=== PATIENT | female | born 1960 | race Caucasian/White ===

== ENCOUNTER 2016-12-04 10:41 | Day surgery (SDC) | payer OTHER ==
[~2016-12-04] VITALS: Ht 165.1 cm; Wt 77.1 kg
[~2016-12-04 10:41] MED LIST: ASPI-973 PO; CHOL100043 PO; CHOL400T30 PO; DESO15OI TOP; IBUP800T28 PO; L.AC1CAP6 PO; LEVO100T6 PO; LOSA25TA21 PO; Lactated Ringer's 1,000 ML IV ONE; METH850P PO; METOCLOPRAMIDE PO; OXYC-474 PO; TOLT4CAP13 PO
[2016-12-04] MEDS ORDERED: Ketamine 10 mg/mL 20 mL Inj ONE (10:42)
[2016-12-04] MEDS ORDERED: Propofol 10,000 mCg/mL 20 mL Inj ONE (10:42)
[2016-12-04] MEDS ORDERED: Glycopyrrolate 0.2 MG/ML 1mL Inj ONE (10:42)
[2016-12-04 11:40] VITALS: BP 123/71; PULSE 58; RESP 14; O2SAT 99
--- NOTE | 2016-12-04 12:09 | PCM.HPANE ---
Patient Data Date of Service: Dec 04, 2016 Surgeon Admitting Provider: Attending Provider:Violeta Contreras MD Primary Care Physician:Vicki Almodovar MD Other Provider:Russell Peterson Anesthesia Reason for Visit Fecal Incontinence Ht/WT & BMI Height (Feet): 5 Height (Inches): 5 Weight (Kilograms): 77.11 Body Mass Index 28.00 Allergies Coded Allergies: trazodone (Verified Allergy, Severe, 12/03/16) morphine (Verified Allergy, Unknown, 12/03/16) Past Anesthesia History Anesthesia History: Denies:: Abnormal Airway, Anesthesia Reactions, Difficult Intubation, Fam Anesthesia Reaction, Fam Malignant Hypertherm, Malignant Hyperthermia Diabetes History Hx Diabetes?: Yes (DIET CONTROLLED) Type of Diabetes: Diet Controlled Glycemic Control: Diet Controlled MRSA MRSA: No Medications Blood Thinner: Aspirin (doesn't take her aspirin) Hypertension Medication: No Home Meds Incl Beta Benita: No Reported Medications Cholecalciferol (Vitamin D3) (Vitamin D)1,000 Unit Tablet1,000 Unit PO DAILY #1 BOTTLE Ref 0 12/03/16 Tolterodine Tartrate ER 4 Mg Capsule4 Mg PO DAILY 12/03/16 L.acidoph & Paracasei,B.lactis (Probiotic)10 Billion Cell Capsule1 Each PO BID 12/03/16 Methylcellulose (with Sugar) (Citrucel Powder)850 Gm Qjthls707 Gm PO DAILY 12/03/16 Ibuprofen 800 Mg Shvgvc843 Mg PO TID PRN For Pain Ref 0 12/03/16 Oxycodone (Roxicodone)5 Mg Daiqba24 Mg PO Q8HRS PRN For Pain Ref 0 12/03/16 Losartan Potassium 25 Mg Ocbejr60 Mg PO BID 12/03/16 Levothyroxine 100 Mcg Hukenz678 Mcg PO DAILY For Thyroid Replacement Ref 0 12/03/16 Cholecalciferol (Vitamin D3) (Vitamin D)400 Unit Xdfsdo907 Unit PO DAILY #1 BOTTLE Ref 0 12/03/16 Desonide (Desonide Ointment)N Oint...g.1 Applic TOP BID #1 TUBE Ref 0 12/03/16 [Metoclopramide ] No Conflict Check10 Mg PO PRN 03/03/13 Discontinued Reported Medications Aspirin 81 Mg Bxsgyf76 Mg PO DAILY Ref 0 12/03/16 Bupropion-Expunged Drug, Do Not Renew! (Bupropion SR-Expunged Drug, Do Not Renew !)150 Mg Qsoslg736 Mg PO BID DO NOT CRUSH TAB, TAKE WITH FOOD 03/03/13 Losartan-Expunged Drug, Do Not Renew! 50 Mg Oqzelq70 Mg PO BID 03/03/13 MULTIVITAMIN-Expunged Drug, Do Not Renew! (MULTI VITAMIN -Expunged Drug, Do Not Renew!)1 Each Tablet1 Each PO DAILY 03/03/13 Ergocalciferol-Expunged Drug, Do Not Renew! (Vitamin D-Expunged Drug, Do Not Renew!)400 Unit Bowdatc379 Unit PO DAILY 03/03/13 Levothyroxine-Expunged Drug, Do Not Renew! (Synthroid-Expunged Drug, Do Not Renew!)100 Mcg Verwyb929 Mcg PO DAILY 0.1 MG = 100 MCG 02/28/13 Oxybutynin-Expunged Drug, Do Not Renew! 5 Mg Tablet5 Mg PO BID 02/28/13 Paroxetine-Expunged Drug, Do Not Renew! (Paxil-Expunged Drug, Do Not Renew!)40 Mg Nystri24 Mg PO DAILY 02/28/13 Bupropion-SR 150 MG Tablet (Zyban-SR 150 MG Tablet)150 Mg Zccul515 Mg PO BID DO NOT CRUSH TAB..TAKE WITH FOOD 02/28/13 oxyCODONE-Expunged, Do Not Renew! 5 Mg Tablet5 Mg PO Q4 02/28/13 Cyclobenzaprine-Expunged Drug, Do Not Renew! 10 Mg Tablet5-10 Mg PO BID For muscle spasms 02/28/13 Aspirin-Expunged Drug, Do Not Renew! (Aspirin EC-Expunged Drug, Do Not Renew!) 81 Mg Zpjatp71 Mg PO DAILY DO NOT CRUSH 02/28/13 Desonide 0.05% Ointment (Desowen 0.05% Ointment)15 Gm Tube APPLY BY TOPICAL ROUTE 2 TIMES EVERY DAY SPARINGLY AND RUB GENTLY INTO THE AFFECTED AREA(S) 02/28/13 History History of ENT Problems?: No HEENT History: Denies:: Abnormal Airway Difficult Intubation Dysphagia Hearing Problem Denture Type: None Teeth Condition: Tooth Decay Missing Teeth Hx of Heart Problems?: Yes Cardiovascular History: Positive for:: Hypertension Denies:: AICD Atrial Fibrillation Chest Pain Pacemaker Valvular Heart Disease Hx of Respiratory Problem?: Yes Respiratory History: Positive for:: Pneumonia (MANY YEARS AGO (IN 90S)) Denies:: Asthma COPD Cough Hemoptysis Tuberculosis Hx Neurologic Problems?: No Neurological History: Denies:: CVA Seizures TIA Other Neurological Pertinent: BUE neuropathy Hx of GI Problems?: Yes Gastrointestinal History: Denies:: Gastroesphageal Reflux Other GI Pertinent History: c.difficile diarrhea Hx of Problems?: No Female Hx: Denies:: Currently (tubal ligation) Skin History: Denies:: History Skin Disorders? Hx Musculoskeletal Problems?: Yes Musculoskeletal History: Positive for:: Osteoarthritis Denies:: Joint Replacement Psycho Social History: Positive for:: Anxiety Hx Depression Hx Surgeries?: Yes (tubal ligation, gallbadder, neck x2) Hx Any Other Health Problems?: Yes Other History: Positive for:: Thyroid Disease (asymptomatic) History Blood Transfusions: Denies:: Accept Blood Products? (Temple ) Blood Transfusions Hx Diabetes: Yes (DIET CONTROLLED) Hx Alcohol Use: Yes (QUIT 26 YEARS AGO)Hx Substance Use: No Smoking Status: Never Smoker Stop/Bang Treated for Sleep Apnea?: No Do You Have a CPAP Machine?: No S-Snoring: Do You Snore Loudly: No T-Tired: feel tired, fatigued: No O-Obsered: Observed not breath: No P-Blood Pressure: treated: Yes B- Body Mass Index > 35 kg/m2: No A- Age over 50: Yes N- Neck Large Circumference: No G- Gender Male: No ELENI Total Score: 2 Risk Assessment Category Category 1A: Patient has history of documented sleep apnea, and HAS NOT received any narcotic, sedative or anesthesia administration during this stay. Category 1B: Patient has history of documented sleep apnea, and HAS received any narcotic , sedative or anesthesia administration during this stay Category 2: Patient has SUSPECTED Obstructive Sleep Apnea, and HAS received any narcotic , sedative or anesthesia administration during this stay. Category 3: Patient has SUSPECTED Obstructive Sleep Apnea and HAS NOT received narcotic, sedative or anesthesia administration during this stay. Category 4: Outpatient in Procedural Areas with known sleep apnea or who screen positive for High Risk via the STOP/BANG questionnaire. Exam Exam Vital Signs Vital Signs Date Time Temp Pulse Resp B/P Pulse Ox O2 Delivery O2 Flow Rate FiO2 12/04/16 11:40 58 14 123/71 99 Room Air General Appearance: Alert, Oriented X3, Cooperative, No Acute Distress HEENT/AIRWAY: MP 3, Neck Movement (from), Mouth Opening (3), Other (tmd3) Lungs: Diminished Heart: Exam Unremarkable, Regular Rate/Rhythm, Normal S1, Normal S2, No Murmurs /Rubs/Gallops Plan Impression Patient chart reviewed, patient interviewed and anesthestic plan with risks, benefits, and alternatives discussed, and informed consent obtained. NPO per Anesth. Guidelines: Yes ASA Physical Status: ASA2 Mod Systemic Disease Anesthetic Plan: TIVA Bene/Risks/Altern/Consents: Yes HP Complete Prior to Induction: Yes Louie Alvarez MD Dec 04, 2016 12:08
[2016-12-04 13:05] VITALS: BP 126/73; PULSE 72; RESP 14; O2SAT 100
[2016-12-04 13:22] VITALS: BP 131/73; PULSE 72; RESP 14; O2SAT 100
--- NOTE | 2016-12-04 13:50 | ENDO ---
[address] [address] ENDOSCOPY PROCEDURE PATIENT: MAXIMINO GAY : 1960 MR#: [id number] ADMIT: 12/04/2016 JOB ID: [id number] PROCEDURE: Colonoscopy. INDICATION: Fecal incontinence. ANESTHESIA: The patient's ASA classification, Mallampati score, and medications as per Dr. Louie Alvarez's anesthesia report. INSTRUMENT USED: PCF H 180 AL. PREPARATION QUALITY: Good. PROCEDURE DETAILS: After informed consent was obtained, the patient was brought into the GI suite, where she was placed on oxygen via nasal cannula and monitored with continuous pulse oximeter, telemetry, and blood pressure monitoring. A time-out was performed, then she was placed in the left lateral decubitus position and medications were administered for sedation. Digital rectal exam was performed, which was unremarkable. The colonoscope was then inserted into the rectum and advanced under direct visualization to the terminal ileum, which was identified by the presence of the ileocecal valve and villous appearing mucosa of the terminal ileum. Once the terminal ileum was reached, the colonoscope was withdrawn back into the rectum as the mucosa and lumen were examined. In the rectum, retroflexion was performed. Following retroflexion, the remaining air in the rectum was suctioned and the procedure was completed. FINDINGS: 1. Normal appearing terminal ileum. Multiple random biopsies were obtained. 2. In the ascending colon, there was an approximately 6 mm sessile polyp that was removed with a hot snare. 3. In the proximal transverse colon, there was an approximately 5 mm sessile polyp that was removed with a hot snare. 4. The mucosa from the rectum to cecum was unremarkable. Multiple random biopsies were obtained. 5. Retroflexed views in the rectum were unremarkable. IMPRESSION: 1. Normal appearing terminal ileum. 2. Ascending colon polyp. 3. Proximal transverse colon polyp. 4. Otherwise normal exam from rectum to cecum. RECOMMENDATIONS: 1. Avoid NSAIDs and anticoagulants for 72 hours. 2. Await biopsy results. 3. Follow up in GI Clinic in 2-4 weeks. COMPLICATIONS: None. ESTIMATED BLOOD LOSS: Less than 5 mL.
--- NOTE | 2016-12-05 12:06 | PCM.ANEP1 ---
Post Anesthesia PACU Phase 1 Assessment Date of Service: Dec 05, 2016 Anesthetic Administered: TIVA Level of Alertness: Awake, talking MCMILLAN's with Equal Strength: Yes Pain: No Pain Scale Score: 0 Nausea or Vomiting: No CV Function & Hydration Stable: Yes Airway Device: none Oxygen Delivery: Nasal Cannula Lungs: Diminished PACU Phase 2 Assessment Complications: No Follow up Care: N/A Patient Instructions Provided: N/A Louie Alvarez MD Dec 05, 2016 12:06
--- NOTE | 2016-12-05 17:58 | PATH ---
SURGICAL PATHOLOGY Attending Physician:Wagner Ortiz CASE STATUS: Signed Out PATIENT NAME: MAXIMINO GAY PID: [id number] : 1960 DATE COLLECTED:12/04/2016 22:34 SPECIMEN: 1: Ileum, Biopsy 2: Colon, Biopsy 3: Colon, Polyp 4: Colon, Polyp CLINICAL HISTORY: 1). TERMINAL ILEUM BIOPSY 2). RANDOM COLON BIOPSY 3). ASCENDING COLON POLYP X1 4). TRANSVERSE COLON POLYP X1 FINAL DIAGNOSIS: 1.TERMINAL ILEUM, BIOPSY: SMALL BOWEL MUCOSA WITH NO DIAGNOSTIC ABNORMALITY. Negative for active inflammation, dysplasia, and malignancy. 2.RANDOM COLON, BIOPSIES: COLONIC MUCOSA WITH NO SIGNIFICANT DIAGNOSTIC ABNORMALITY. Negative for active, chronic, and microscopic colitis. Negative for dysplasia and malignancy. 3.ASCENDING COLON POLYP, BIOPSY: SESSILE SERRATED ADENOMA. 4.TRANSVERSE COLON, POLYP, BIOPSY: SESSILE SERRATED ADENOMA. [id number] D12.3 GROSS DESCRIPTION: Received four formalin-filled containers, each labeled with the patient' s name. 1. Received in formalin, labeled with the patient' s name and "TI biopsy", are two fragments of hess, soft tissue ranging from 0.1 x 0.1 x 0.1 cm to 0.2 x 0.1 x 0.1 cm. The fragments are totally submitted in cassette 1A. 2. Received in formalin, labeled with the patient' s name and "random colon biopsy", are multiple fragments of hess, soft tissue ranging from 0.1 x 0.1 x 0.1 cm to 0.2 x 0.1 x 0.1 cm. The fragments are totally submitted in cassette 2A. 3. Received in formalin, labeled with the patient' s name and "ascending colon polyp", is one fragment of hess, soft tissue measuring 0.5 x 0.3 x 0.2 cm. The fragment is totally submitted in cassette 3A. 4. Received in formalin, labeled with the patient' s name and "transverse colon polyp", are five fragments of hess, soft tissue ranging from 0.1 x 0.1 x 0.1 cm to 0.3 x 0.2 x 0.1 cm. The fragments are totally submitted in cassette 4A. [id number]) MICRO DESCRIPTION: See diagnosis. ICD-9 CODES: CPT CODES: 1: 59404 2: 12728 3: 73269 4: 48573 Electronically Signed Out April Alvarenga MD [facility] [address], [place] [address] Technical component performed at [facility], [facility] [address], [place], [address]
== END 2016-12-04 23:59 | disposition home or self-care (01) ==
LOC: END 10:41
PROVIDERS: ATTEND Internal Medicine Gastroenterology
DX: D12.2 Benign neoplasm of ascending colon (principal); D12.3 Benign neoplasm of transverse colon; R15.9 Full incontinence of feces; Z79.899 Other long term (current) drug therapy; Z88.5 Allergy status to narcotic agent; Z87.891 Personal history of nicotine dependence
CPT/HCPCS: 45380; 45385; J2250; J7120